=== PATIENT | female | born 1960 | race Caucasian/White ===

== ENCOUNTER 2021-08-18 14:35 | Emergency (ER) | payer MEDICARE, OTHER ==
[2021-08-18 16:10] LABS: RED BLOOD COUNT 4.84 M/UL (4.00-5.10); WHITE BLOOD COUNT 6.8 K/UL (4.5-11.0)
[2021-08-18 16:27] LABS: BUN/CREATININE RATIO 10 (0-10)
== END 2021-08-18 17:34 | disposition home or self-care (01) ==
LOC: ER1 14:35
PROVIDERS: Emergency Medicine
DX: R53.1 Weakness (principal); J44.9 Chronic obstructive pulmonary disease, unspecified; I10 Essential (primary) hypertension; Z20.822 Contact with and (suspected) exposure to COVID-19
CPT/HCPCS: 71045; 80053; 81001; 83605; 83735; 85025; 87040; 93005; 96374; 99285; J2405; U0002

== ENCOUNTER 2021-08-19 18:07 | Inpatient (IN) | payer MEDICARE, OTHER ==
[~2021-08-19] VITALS: Ht 162.6 cm; Wt 56.2 kg
[2021-08-19 19:58] LABS: HEMOGLOBIN 14.4 gm/dl (12.3-15.3); RED BLOOD COUNT 4.59 M/UL (4.00-5.10)
[2021-08-19 19:59] LABS: WHITE BLOOD COUNT 10.1 K/UL (4.5-11.0)
[2021-08-19 20:20] LABS: BUN/CREATININE RATIO 15 (0-10)
[2021-08-20] MEDS ORDERED: LIALDA1.2 GM PO ×2 (09:25→20:10)
[2021-08-20] MEDS ORDERED: DEXILANT60 MG PO (09:26)
--- NOTE | 2021-08-20 15:43 | NUR ---
08/20/21 1540 PRIMARY CARE PROVIDER DANE [facility] OFFICE IN [place]
[2021-08-20] MEDS ORDERED: PEG3350510 GM PO (20:08)
[2021-08-20] MEDS ORDERED: BENTYL 10MG CAP10 MG PO (20:12)
[2021-08-20] MEDS ORDERED: PROVENTIL HFA6.7 GM INH (20:13)
[2021-08-21 07:32] LABS: WHITE BLOOD COUNT 8.9 K/UL (4.5-11.0)
[2021-08-21 07:41] LABS: RED BLOOD COUNT 3.99 M/UL (4.00-5.10)
[2021-08-21 08:07] LABS: BUN/CREATININE RATIO 24 (0-10)
[2021-08-22 06:55] LABS: HEMOGLOBIN 12.9 gm/dl (12.3-15.3); RED BLOOD COUNT 4.22 M/UL (4.00-5.10); WHITE BLOOD COUNT 7.3 K/UL (4.5-11.0)
[2021-08-22 07:32] LABS: BUN/CREATININE RATIO 16 (0-10)
--- NOTE | 2021-08-22 21:25 | NUR ---
APPROX 2044: RECIEVED CALL FROM CASANDRA AT [facility] REGARDING TRANSFERRING PATIENT TO [facility]. FACILITY HAD A BED FOR PATIENT. NOTIFIED [employer] DEAN, WAS INSTRUCTED TO CALL PHYSICIAN. CALLED DR. MCKINLEY, HE GAVE VERBAL ORDER FOR TRANSFER. CALLED CASANDRA AT [facility] BACK AND WAS ADVISED PATIENT WOULD HAVE TO BE TRANSPORTED BY [employer] [facility] AND SIGN HERSELF IN ON ARRIVAL. APPROX 2114: CASANDRA FROM [facility] CALLED. STATED THEY WERE MORE COMFORTABLE WAITING UNTIL TOMORROW TO DO TRANSFER. STATED ATTENDING PHYSICIAN NEEDED TO CALL THE ADMITTING PHYSICIAN AND COMPLETE A DOCTOR TO DOCTOR TRANSFER TOMORROW. STATED AGAIN THAT PT HAD BEEN ACCEPTED AND WOULD HAVE A BED TOMORROW.
--- NOTE | 2021-08-23 21:09 | NUR ---
RECIEVED CALL FROM NOREEN AT [facility]. SHE STATED THAT PT WAS NOT ACCEPTED AT [facility] AND THAT SHE MAY NOT QUALIFY FOR ACUTE INPATIENT. STATED THAT THEY WILL DO A REPEAT ASSESSMENT TOMORROW, SINCE PT HAD JAQUELIN TODAY. STATED THAT [facility] MAY NEED TO BE PETITIONED.
[2021-08-26 06:17] LABS: HEMOGLOBIN 14.5 gm/dl (12.3-15.3); RED BLOOD COUNT 4.71 M/UL (4.00-5.10); WHITE BLOOD COUNT 8.3 K/UL (4.5-11.0)
[2021-08-26 06:42] LABS: BUN/CREATININE RATIO 25 (0-10)
[2021-08-28 03:45] LABS: HEMOGLOBIN 13.2 gm/dl (12.3-15.3); RED BLOOD COUNT 4.31 M/UL (4.00-5.10); WHITE BLOOD COUNT 6.9 K/UL (4.5-11.0)
[2021-08-28 04:08] LABS: BUN/CREATININE RATIO 25 (0-10)
--- NOTE | 2021-08-29 11:47 | NUR ---
awaiting from [facility] direct admission- faxed information of requested forms early this morning
--- NOTE | 2021-08-29 15:12 | NUR ---
contacted [facility] and direct admit shae stated she will call me back that she is in the middle of something.
[2021-09-01] MEDS ORDERED: ALPRAZOLAM0.5 MG PO (13:46)
[2021-09-01] MEDS ORDERED: OLANZAPINE10 MG PO (13:46)
[2021-09-01] MEDS ORDERED: METOPROLOL SUCC25 MG PO (13:46)
[2021-09-05 09:14] LABS: 7-AMINOCLONAZEPAM Negative (.); ALPRAZOLAM 48.3 ng/mL (.); BENZODIAZEPINES CONFIRM Positive (.); CHLORDIAZEPOXIDE Negative (.); CLONAZEPAM Negative (.); DESALKYLFLURAZEPAM Negative (.); DESMETHYLCHLORDIAZEPOXIDE Negative (.); DESMETHYLDIAZEPAM Negative (.); DIAZEPAM Negative (.); FLURAZEPAM Negative (.); LORAZEPAM Negative (.); MIDAZOLAM Negative (.); OXAZEPAM Negative (.); TEMAZEPAM Negative (.); TRIAZOLAM Negative (.)
== END 2021-09-01 15:08 | disposition home or self-care (01) | DRG 885 ==
LOC: ER1 18:07 → CDU 08-20 08:16 → MED SURG 4 08-20 11:08
PROVIDERS: Emergency Medicine; Internal Medicine Infectious Disease; Physician Assistant; Physician Assistant Medical; ADMIT Internal Medicine
DX: F28 Other psychotic disorder not due to a substance or known physiological condition (principal); K50.90 Crohn's disease, unspecified, without complications; R41.0 Disorientation, unspecified; Z20.822 Contact with and (suspected) exposure to COVID-19; F12.10 Cannabis abuse, uncomplicated; F22 Delusional disorders; G89.29 Other chronic pain; K21.9 Gastro-esophageal reflux disease without esophagitis; F41.9 Anxiety disorder, unspecified; F32.A Depression, unspecified; J44.9 Chronic obstructive pulmonary disease, unspecified; E87.6 Hypokalemia; F41.8 Other specified anxiety disorders; Z90.49 Acquired absence of other specified parts of digestive tract; Z90.710 Acquired absence of both cervix and uterus
CPT/HCPCS: 36415; 36600; 70450; 71045; 80048; 80053; 80307; 81001; 82140; 82550; 82553; 82607; 82803; 83605; 83735; 84100; 84132; 84439; 84443; 85025; 85027; 86140; 87040; 87086; 87205; 93005; 96372; 99285; G0378; G0480; J3411; J3480; J3486; U0002